=== PATIENT | male | born 1955 | race African-American/Black ===

== ENCOUNTER 2020-04-10 15:34 | Emergency (ER) | payer MEDICAID, OTHER ==
[~2020-04-10] VITALS: Ht 185.4 cm; Wt 86.0 kg
[~2020-04-10 15:34] MED LIST: AMLO5TAB88 MT; ASPI-1497 PO; ATEN100T PO; CARI350T28 PO; LISI40TA4 PO; METF-416 PO; OMEP20TA2 PO; TEMA15CA5 PO
[2020-04-10 15:43] VITALS: BP 137/92
[2020-04-10] MEDS ORDERED: HYDROCODONE/ACETAMINOPHEN 5/325MG TABLET PO ONE (18:00)
[2020-04-10] MEDS ORDERED: TETANUS, DIPHTHERIA, PERTUSSIS VAC/PF 0.5ML (>7YR OLD) IM ONE (18:00)
== END 2020-04-10 18:14 | disposition home or self-care (01) ==
LOC: ER 15:34
DX: T63.301A Toxic effect of unspecified spider venom, accidental (unintentional), initial encounter (principal); E11.9 Type 2 diabetes mellitus without complications; I10 Essential (primary) hypertension; Z79.82 Long term (current) use of aspirin; Z79.84 Long term (current) use of oral hypoglycemic drugs; Y92.018 Other place in single-family (private) house as the place of occurrence of the external cause
CPT/HCPCS: 90471; 90715; 99283